=== PATIENT | male | born 1955 ===

== ENCOUNTER 2017-10-22 16:33 | Emergency (ER) | payer OTHER ==
[~2017-10-22] VITALS: Ht 180.3 cm; Wt 146.1 kg
[~2017-10-22 16:33] MED LIST: AVAPRO300 MG; GLIBURIDE; HUMALOG100 U/ML; JANUMET 50-1,1 UDTAB; LANTUS100 U/ML; NORVASC2.5 MG; SIMVASTATIN5 MG
[2017-10-22] MEDS ORDERED: TOPROL XL50 M1 PO (16:56)
[2017-10-22] MEDS ORDERED: NEURONTIN800 MG PO (16:56)
[2017-10-22] MEDS ORDERED: NORVASC10 MG PO (16:56)
[2017-10-22] MEDS ORDERED: LASIX40 MG PO (16:57)
[2017-10-22] MEDS ORDERED: ZYLOPRIM300 MG PO (16:57)
[2017-10-22] MEDS ORDERED: GLYBURIDE5 MG PO (16:57)
== END 2017-10-22 20:50 | disposition home or self-care (01) ==
LOC: ER 16:33
DX: L03.116 Cellulitis of left lower limb (principal); L97.829 Non-pressure chronic ulcer of other part of left lower leg with unspecified severity

== ENCOUNTER 2017-10-23 14:30 | Outpatient (CLI) | payer OTHER ==
[~2017-10-23 14:30] MED LIST changes: +GLYBURIDE5 MG PO; +LASIX40 MG PO; +NEURONTIN800 MG PO; +NORVASC10 MG PO; +TOPROL XL50 M1 PO; +ZYLOPRIM300 MG PO
== END 2017-10-23 14:40 | disposition home or self-care (01) ==
LOC: RAD 14:30
DX: E10.622 Type 1 diabetes mellitus with other skin ulcer (principal); L97.101 Non-pressure chronic ulcer of unspecified thigh limited to breakdown of skin

== ENCOUNTER → 2017-11-08 14:32 | Outpatient (CLI) | payer OTHER | END | disposition home or self-care (01) | LOC: LAB 14:32 | DX: L97.909 Non-pressure chronic ulcer of unspecified part of unspecified lower leg with unspecified severity (principal) ==

== ENCOUNTER 2018-11-04 16:02 | Outpatient (CLI) | payer OTHER | END 2018-11-04 16:14 | disposition home or self-care (01) | LOC: LAB 16:02 | DX: E78.49 Other hyperlipidemia (principal); E08.9 Diabetes mellitus due to underlying condition without complications; I10 Essential (primary) hypertension; I50.89 Other heart failure ==